=== PATIENT | female | born 1935 | race Caucasian/White ===

== ENCOUNTER 2016-12-10 18:17 | Inpatient (IN) | payer MEDICARE, OTHER ==
--- NOTE | ~2016-12-10 | IDS ---
Interim Discharge Summary [facility] [address] [place]. [address] NAME: PINA WADSWORTH : 35 STATUS : ADM IN [facility]#: [id number] AGE: 81 ADM/REG DATE : 12/11/16 MR#: [id number] REPORT SERV DATE: 12/16/16 DICTATED BY: RICHY HRERMANN DATE: 12/15/16 REPORT STATUS : Draft TRANSCRIBED BY: MODFreida DATE: 12/15/16 ADMISSION DATE: 12/11/2016 DISCHARGE DATE: DATE OF INTERIM DISCHARGE: 12/09/2009. PROCEDURES DONE: 1. 12/10/2016, CT of the brain, no acute intracranial hemorrhage or acute intracranial pathology. Otherwise unremarkable. 2. 12/11/2015, chest x-ray, no acute process. 3. 12/11/2016, KUB:. a. No evidence of acute abnormality within the abdomen. 4. 12/11/2016, ultrasound, renal collecting system, mildly dilated on the left side. Right kidney, nonobstructive. Aorta and vena cava normal. Urinary bladder not imaged. CONSULT: GI with nurse practitioner, Jairon Miller. REASON FOR ADMISSION: Abnormal labs. HISTORY OF HOSPITAL STAY: An 81-year-old white female with a past medical history of Crohn's disease, status post stent in 09/2016; hypertension; hypothyroid; hyperlipidemia; and chronic kidney disease, stage 3, presenting with abnormal labs. The patient was admitted due to the patient having acute kidney injury. Also, there was a note of having bright red per rectum. GI was consulted regarding the patient's acute bright red per rectum. Initial tests, however, show the patient being positive for C. difficile. At this time, GI felt no scope needed due to the patient having no obvious source of GI bleed. Nonetheless, the patient's acute kidney injury gradually resolved over time when the patient started having IV fluids. In addition, the patient also was being treated for the C. diff with vancomycin p.o. liquid. DIAGNOSES ON DISCHARGE: 1. Abnormal labs secondary to acute kidney injury, currently resolved. Patient getting IV fluids. 2. Bright red blood per rectum secondary to questionable etiology. I appreciate GI input. GI signing out. Hemoglobin and hematocrit currently are stable. Therefore, no scope at this time due to no obvious sign of GI bleed as well as the patient being positive for Clostridium difficile. 3. Clostridium difficile. Continue vancomycin liquid. 4. Acute kidney injury, improving. FBJann/MODL Richy Herrmann MD Interim Discharge Summary [address] [facility] [place] [address] NAME: PINA WADSWORTH : 35 STATUS : ADM IN PAT#: [id number] AGE: 81 ADM/REG DATE : 12/11/16 MR#: [id number] REPORT SERV DATE: 12/16/16 DICTATED BY: RICHY HERRMANN DATE: 12/15/16 REPORT STATUS : Draft TRANSCRIBED BY: ELZBIETA DATE: 12/15/16 / [id number] CC: MD Bhupendra Vega M.D.
--- NOTE | ~2016-12-10 | HP ---
History And Physical [address] [facility]. [address] NAME: PINA WADSWORTH : 35 STATUS : ADM IN PAT#: [id number] AGE: 81 ADM/REG DATE : 12/11/16 MR#: [id number] REPORT SERV DATE: 12/11/16 DICTATED BY: KRIS CARRION DATE: 12/11/16 REPORT STATUS : Draft TRANSCRIBED BY: MODFreida DATE: 12/11/16 DATE OF ADMISSION: 12/11/2016 POINT OF ENTRY: [facility] Emergency Department. PRIMARY TRACK VEHICLE REPAIRER: Terrence Cuello M.D. PRIMARY PIECE WORKER: Gio Novak M.D. CHIEF COMPLAINT: Abnormal labs. HISTORY OF PRESENT ILLNESS: Ms Wadsworth is an 81-year-old female with history of hypertension, hyperlipidemia, coronary artery disease with recent drug-eluting stent, PCI in September 2016 as well as hypothyroidism, who presents to the emergency room today with reports of abnormal labs. The patient states that for the past week to dmeh-gqp-p-half she has had upper respiratory tract congestion with cough, sputum production, and generally feeling poorly. She denies any fevers. She was seen by Dr. Rios in clinic yesterday and started on some Biaxin for presumed acute bronchitis. The patient also states that she has had issues with bright red blood per rectum on and off now for the past two years and is seeing Dr. Novak. Last colonoscopy was in September 2015 which showed polyps, diverticulosis, as well as internal hemorrhoids. She states for the past week to iolh-qoh-b-half she has had recurrence of multiple episodes of bright red blood per rectum, both in the toilet bowl water as well as on her toilet paper. The patient for the past week to ddof-ixr-j-half also just generally felt poorly with very poor oral intake as well as occasional loose watery stools. She denies any fevers, night sweats, chills, chest pain, palpitations, nausea, or vomiting. Initial evaluation in the emergency department notable for a BUN of 84, creatinine of 3.2 with a potassium level of 5.9. Her hemoglobin also was 8.5, hematocrit is 26.1. EKG did show some mild peaked T-waves, she was subsequently the Hospitalist Service for further evaluation and management. Comprehensive systems otherwise negative unless listed in history of present illness. PAST MEDICAL HISTORY: 1. Coronary artery disease with recent drug-eluting stent, PCI to the mid LAD and RCA in September 2014. 2. Hypertension. 3. Hyperlipidemia. 4. Myasthenia gravis, on Mestinon. 5. History of cerebrovascular accident in 2006. History And Physical [address] [address] NAME: PINA WADSWORTH : 35 STATUS : ADM IN PAT#: [id number] AGE: 81 ADM/REG DATE : 12/11/16 MR#: [id number] REPORT SERV DATE: 12/11/16 DICTATED BY: KRIS CARRION DATE: 12/11/16 REPORT STATUS : Draft TRANSCRIBED BY: ELZBIETA DATE: 12/11/16 6. Chronic kidney disease, stage 3, baseline creatinine approximately 1 to 1.2. 7. Hypothyroidism. 8. Glaucoma. 9. Cataracts. 10.Chronic anemia. 11.Chronic diastolic congestive heart failure. PAST SURGICAL HISTORY: 1. Cholecystectomy. 2. Abdominal hysterectomy. 3. Cataract surgery. ALLERGIES: NO KNOWN DRUG ALLERGIES. HOME MEDICATIONS: 1. Albuterol two puffs inhalation q.6 hours p.r.n. 2. Tekturna 300 mg daily. 3. Norvasc 10 mg daily. 4. Aspirin 81 mg q.h.s. 5. Symbicort two puffs inhalation b.i.d. 6. Chlorthalidone 25 mg daily. 7. Biaxin 250 mg b.i.d. 8. Plavix 75 mg daily. 9. Dexilant 60 mg daily. 10.Fenofibrate 145 mg daily. 11.Folic acid one tablet daily. 12.Hydralazine 50 mg b.i.d. 13.[place] 7.5/325 mg one tablet b.i.d. 14.Levothyroxine 100 mcg daily. 15.Imodium 2 mg q.4 hours p.r.n. 16.Singulair 10 mg q.h.s. 17.Nitroglycerin 0.4 mg sublingual p.r.n. 18.Mirapex 0.25 mg q.h.s. 19.Pravachol 40 mg q.h.s. 20.Mestinon 90 mg t.i.d. 21.Sertraline 50 mg daily. 22.Trazodone 50 mg q.48 hours q.h.s. 23.Travatan eye drops. SOCIAL HISTORY: Denies any tobacco, alcohol, or illicits. FAMILY MEDICAL HISTORY: Father and sibling with history of coronary artery disease. LABS AND IMAGIN. White count is 8.5, hemoglobin 8.5, hematocrit is 26.1, and platelet count is 301. INR pending. 2. Sodium is 135, potassium 5.9, chloride 104, carbon dioxide 20, BUN 84, creatinine 3.28, History And Physical [address] [place]. [address] NAME: PINA WADSWORTH : 35 STATUS : ADM IN [facility]#: [id number] AGE: 81 ADM/REG DATE : 12/11/16 MR#: [id number] REPORT SERV DATE: 12/11/16 DICTATED BY: KRIS CARRION DATE: 12/11/16 REPORT STATUS : Draft TRANSCRIBED BY: ELZBIETA DATE: 12/11/16 glucose is 127, calcium is 8.7, protein is 7.3, albumin is 3.3, bilirubin is 0.6, ALT is 21, AST is 36, and alkaline phosphatase is 43. 3. EKG per my review shows normal sinus rhythm with some mild lateral T-wave peaking, but no interval prolongation. 4. Chest x-ray per my review shows no acute cardiopulmonary abnormality. 5. CT scan of the brain, no intracranial abnormality. PHYSICAL EXAMINATION: VITAL SIGNS: Temperature is 98.2 degrees Fahrenheit, pulse is 78, respirations 16, saturating 95% on room air, and blood pressure is 117/51. GENERAL: The patient is awake and alert, in no acute distress. Resting comfortably. She is an elderly female, who appears somewhat ill, but nontoxic. Family is at bedside. HEENT: Atraumatic and normocephalic. Slightly dry mucous membranes. Pupils are equal, round, reactive to light and accommodation. Extraocular eye movements intact. No scleral icterus. NECK: No jugular venous distention. No carotid bruits. CARDIAC: Regular rate and rhythm. No murmurs, rubs, or gallops. Normal S1, S2. LUNGS: Clear to auscultation bilaterally except for some mild inspiratory wheezes in the bilateral bases. ABDOMEN: Soft, mildly tender to palpation in bilateral lower quadrants. No rebound, guarding, or rigidity. EXTREMITIES: Warm and perfused. No cyanosis or clubbing. SKIN: The patient does have a stage I sacral decubitus wound just to the right of midline as well as a stage II sacral decubitus wound just to the right of the gluteal cleft and a stage II sacral decubitus wound just to the left of the gluteal cleft. PSYCH: Affect is very blunted and withdrawn. NEURO: Alert and oriented x3. Cranial nerves 2 through 12 grossly intact. Speech is normal. Gait not assessed. ASSESSMENT AND PLAN: Ms Wadsworth is an 81-year-old female, who presents with a one to two- week history of upper respiratory tract congestion, feeling poorly, weakness, anorexia as well as multiple episodes of bright red blood per rectum and found to have evidence of acute kidney injury with hyperkalemia as well as acute on chronic anemia. PROBLEM LIST: 1. Acute kidney injury. 2. Hyperkalemia. 3. Bright red blood per rectum. 4. Acute on chronic anemia. 5. Acute bronchitis. 6. Sacral decubitus wounds. PLAN: 1. Acute kidney injury. We will hold the patient's nephrotoxic medications including chlorthalidone and Tekturna. There is some concern the patient may also be taking Lasix and potassium chloride in addition to her chlorthalidone. We will provide aggressive IV fluid hydration. Checking urine lytes as well as urinalysis and a renal History And Physical [address] [address] NAME: PINA WADSWORTH : 35 STATUS : ADM IN [facility]#: [id number] AGE: 81 ADM/REG DATE : 12/11/16 MR#: [id number] REPORT SERV DATE: 12/11/16 DICTATED BY: KRIS CARRION DATE: 12/11/16 REPORT STATUS : Draft TRANSCRIBED BY: MODL DATE: 12/11/16 ultrasound. 2. Hyperkalemia. The patient has some mild T-wave peaking on EKG. We will admit her to the cardiac telemetry. She has already received 1 g of calcium gluconate here in the ER as well as temporizing measures including Kayexalate, amp of sodium bicarb, as well as insulin and glucose. We will continue to provide IV fluid hydration, holding nephrotoxic medications as well as potassium supplementation. 3. Bright red blood per rectum. Per discussion with family this appears to be ongoing chronic issue as managed by Dr. Novak. Given worsening anemia as well as the fact that she is on aspirin and Plavix due to recent drug-eluting stent placement, we will consult Dr. Novak for evaluation. 4. Acute on chronic anemia. We will trend out q.6 hours hemoglobin and hematocrit, transfuse for hemoglobin less than 7, but we will continue her aspirin and Plavix given recent drug-eluting stent placement. 5. Acute bronchitis. We will place her on some oral doxycycline as well as steroids and DuoNeb for acute bronchitis. 6. Sacral decubitus wounds. No evidence of any active infection at this time. These appeared to be stage I and stage II in severity, we will consult Wound Care for assistance. 7. Coronary artery disease with recent PCI. We will continue the patient's aspirin and Plavix. She denies any chest pain. Her EKG is nonischemic. We will check a single set of troponin value. 8. DVT prophylaxis. TEDs and SCDs given bleeding. CODE STATUS: The patient wished to be full code. JCB/MODL Kris Carrion MD / [id number] CC: MD Bhupendra Vega M.D. William Warren, M.D. Sumeet Bhushan, M.D.
--- NOTE | ~2016-12-10 | DS ---
Discharge Summary [facility] [address] [place]. [address] NAME: PINA WADSWORTH : 35 STATUS : DIS IN PAT#: [id number] AGE: 81 ADM/REG DATE : 12/11/16 MR#: [id number] REPORT SERV DATE: 12/26/16 DICTATED BY: KELLY MOSLEY DATE: 12/25/16 REPORT STATUS : Draft TRANSCRIBED BY: MODL DATE: 12/25/16 ADMISSION DATE: 12/11/2016 DISCHARGE DATE: 12/25/2016 CONSULTANTS: Dr. Terrence Singer of Gastroenterology. DISCHARGE DIAGNOSES: 1. Recurrent C. 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 2. Acute kidney injury, transient, resolved. 3. Hypertension. 4. History of coronary artery disease with previous drug-eluting stent placed to the RCA. 5. Acute blood loss anemia. 6. History of collagenous colitis. 7. Lower gastrointestinal bleed. 8. History of previous colon polyps that were benign. 9. Previous left silva stroke July 2007. 10.Myasthenia gravis. 11.Hypothyroidism. 12.Recent acute bronchitis. 13.Asymptomatic bacteria. 14.History of generalized anxiety disorder. 15.Transient metabolic encephalopathy with hallucinations when she was sleep deprived, resolved. 16.Recent fall at home with external trauma right ear. 17.Chronic unexplained shortness of breath despite previous pulmonary and cardiac evaluation. 18.Over replacement of Synthroid, currently. HISTORY: This patient had some URI symptoms and had gone to see her PCP, was given some Biaxin. She has also had intermittently some bright red blood per rectum. Previous colonoscopy [address] Gio Novak, revealed hemorrhoids and transverse colon polyp and some diverticulosis. Reportedly for a week and a half, she just felt weak and tired with some loose watery stools. In the emergency room, she was found to have evidence of acute kidney injury with BUN 84, creatinine 3.2, potassium 5.9, her hemoglobin was 8.5. She was referred to our inpatient team for evaluation. As far as her acute kidney injury, there was concern that it might be due to volume depletion from diarrhea plus she was on chlorthalidone and Tekturna. These medications were held, and she was given fluid replacement and her renal function returned to normal so that by discharge creatinine 0.99, potassium 4.0. Her blood pressures have been doing reasonably well off these medicines as well. The patient was seen by GI, and they ordered stool studies on the patient because of her diarrhea, and her C. diff came back positive. She was started on oral vancomycin 125 mg by mouth four times per day. She was noted by the admitting team to have already in place a left gluteal wound and Wound Care saw her on Discharge Summary [address] [place]. [address] NAME: PINA WADSWORTH : 35 STATUS : DIS IN PAT#: [id number] AGE: 81 ADM/REG DATE : 12/11/16 MR#: [id number] REPORT SERV DATE: 12/26/16 DICTATED BY: KELLY MOSLEY DATE: 12/25/16 REPORT STATUS : Draft TRANSCRIBED BY: ELZBIETA DATE: 12/25/16 12/11/2016 and ordered Mepilex Border to the left gluteal wound, Sensi-Care to gee-rectal erythema related to the diarrhea. The patient reportedly did not sleep much at all for the first three days, and according to the daughter after that was having some hallucinations, then she slept and was better. The daughter Haylee by phone indicated that the patient has had some noted confusion since she had coronary stents placed in September 2016. She felt like the patient's memory problems were from that point on. She does indicate though that for a longer period of time, the patient does not initiate much conversation. She will answer questions, just is very passive and withdrawn. The patient still reportedly dresses herself, bathes herself, feed herself, does not cook much, still is able to reportedly pay the bills. The daughter had to take over the medication administration though because the patient was having some trouble with accuracy in this area. The patient also has a complaint of chronic shortness of breath, and according to the daughter, the patient had been going to Dr. Li, of Pulmonary for years, and the patient common-law and daughter indicate that as far as they know, no particular cause for her shortness of breath was ever found by the waste/materials exchange specialist. We did request records from their office but had not received them. While here, she had an echocardiogram 12/10/2016 showing normal left ventricular size and function with ejection fraction 65%. No significant valvular problems. The patient did have an anemia. On presentation, her hemoglobin was 8.5, and its lowest was 6.9. She was given two units of packed red cells, and by discharge it was stable at 10 but no sign of ongoing bleeding. Iron was low at 17, ferritin was 70, TIBC was 367, B12 back on October 28 of this year was 919. Her TSH was low at 0.23, and her free T4 was elevated at 1.7 so her levothyroxine dose was reduced from the usual 100 mcg she was taking daily down to 75 mcg daily, and she needs a recheck TSH in about four weeks. The patient's diarrhea has resolved. She is afebrile. Her white blood count is normal. She has no abdominal pain. She is eating better. She was assessed by Physical Therapy, and they now feel like she would benefit from inpatient rehab so those arrangements have been made. The common-law is in agreement and reportedly the daughter is as well. DISCHARGE MEDICATIONS: Norvasc 10 mg daily, aspirin 81 mg daily, Plavix 75 mg daily, Tricor 145 mg daily, [place] 7.5 b.i.d. p.r.n. pain which is a chronic medication for her, Synthroid 75 mcg daily, Singulair 10 mg daily, Pravachol 40 mg at bedtime, Mestinon 90 mg t.i.d. for her myasthenia gravis, Zoloft 50 mg daily, Desyrel 50 mg every other bedtime, hydralazine 50 mg b.i.d., Symbicort 160/4.5 two puffs twice a day, Tylenol 650 q.6 hours p.r.n. minor pain, melatonin 3 mg at bedtime p.r.n., nitroglycerin sublingual 0.4 mg p.r.n. chest pain, albuterol nebulized or hand-held p.r.n. shortness of breath, Mirapex 0.25 mg at bedtime. We stopped her Dexilant because it has a high risk of leading to relapse of C. diff, and she denied any recent gastroesophageal reflux symptoms. Folic acid with vitamin B12 tablets daily, Travatan-Z 0.004% one drop each eye at bedtime. We stopped her chlorthalidone and Tekturna for the reasons described above. Vancomycin 125 mg p.o. t.i.d. for seven days then 125 mg b.i.d. for seven days, 125 mg daily for seven days then 125 mg every other day for a week, then stop. Discharge Summary [facility] [place]. [address] NAME: PINA WADSWORTH : 35 STATUS : DIS IN PAT#: [id number] AGE: 81 ADM/REG DATE : 12/11/16 MR#: [id number] REPORT SERV DATE: 12/26/16 DICTATED BY: KELLY MOSLEY DATE: 12/25/16 REPORT STATUS : Draft TRANSCRIBED BY: MODFreida DATE: 12/25/16 After discharge, the patient should follow up with her PCP Dr. Eleuterio Rios, with Pulmonary, Dr. Li, neurology Dr. Chao, inspector canned food reconditioning Dr. Cuello, and GI Dr. Novak. I spent 47 minutes today with the patient and with discharge planning. RSG/ELZBIETA Kelly Mosley M.D. / [id number] CC: Nicole Elizabeth M.D. Cheko Li M.D. [facility] Jamal Chao M.D., PhD. Terrence Cuello M.D. Gio Novak M.D.
--- NOTE | ~2016-12-10 | IDS ---
Interim Discharge Summary [facility] [address] [place]. [address] NAME: PINA WADSWORTH : 35 STATUS : ADM IN PAT#: [id number] AGE: 81 ADM/REG DATE : 12/11/16 MR#: [id number] REPORT SERV DATE: 12/21/16 DICTATED BY: EKLLY BRICENO DATE: 12/21/16 REPORT STATUS : Draft TRANSCRIBED BY: ELZBIETA DATE: 12/21/16 ADMISSION DATE: 12/11/2016 DISCHARGE DATE: OUTPATIENT SENIOR SCRUM MASTER: Terrence Cuello M.D. OUTPATIENT GI: Gio Novak M.D. INTERIM DIAGNOSES: 1. Clostridium colitis. 2. Hematochezia secondary to above. 3. Acute blood loss anemia, status post two units packed RBC. 4. Coronary artery disease with stent. 5. History of cerebrovascular accident. 6. Status post acute kidney injury on chronic kidney disease 3. 7. Myasthenia gravis. 8. Hypothyroidism. 9. Status post hypokalemia. 10.Status post acute bronchitis. HOSPITAL COURSE: Please refer to the H and P done by Dr. Albarado dated on 12/11/2016 and the interim discharge summary done by Dr. Espinoza on 12/16/2016. Since I took care of this patient, the patient continues to have diarrhea intermittently with blood. She already got two units of packed RBC and so far she has not been needing for more. Her H and H remained stable and GI already signed off. We are continuing the p.o. vanco and according to her, it is getting better and she wants to go home. She actually said to me that she did not have any more diarrhea and ready to go home. However, the nurses still notes more than four diarrhea in the past 24 hours and some of them is a little bit bloody. The patient denies any abdominal pain, and her vitals remained stable. So, we are going to continue the p.o. vancomycin for now, monitor her electrolytes and H and H, and once her diarrhea resolves that is when she can safely go home. Partner of mine will be following up the patient starting Thursday. SHELDON/ELZBIETA Kelly Briceno M.D. / [id number] CC: Nicole Olson M.D.
--- NOTE | ~2016-12-10 | CN ---
Consultation Report [facility] [address] [place]. [address] NAME: PINA WADSWORTH : 35 STATUS : ADM IN PAT#: [id number] AGE: 81 ADM/REG DATE : 12/11/16 MR#: [id number] REPORT SERV DATE: 12/11/16 DICTATED BY: KAMILAH SHERMAN DATE: 12/11/16 REPORT STATUS : Draft TRANSCRIBED BY: MODL DATE: 12/11/16 GI CONSULTATION DATE OF CONSULTATION: 12/11/2016 REASON FOR CONSULTATION: Evaluation and management of bright red blood per rectum. HISTORY OF PRESENT ILLNESS: Ms. Wadsworth is an 81-year-old female patient, known to Dr. Gio Novak in the outpatient setting, who presented to [facility] on 12/11 with a chief complaint of abnormal labs. She has a history of hypertension and coronary artery disease with recent PCI with drug-eluting stent placed in 09/2016, on a regimen of Plavix and aspirin. She states that for the past week, she has had upper respiratory tract cough, congestion, sputum production and has generally felt bad. She has denied fevers, denied chilling. She saw her primary care physician on 12/10 and was started on Biaxin for possibly acute bronchitis. She states to me that she has had a very poor appetite over the last several weeks. She has had intermittent issues with bright red blood per rectum. This has been an ongoing issue for the past two years. Her last colonoscopy with Dr. Novak was in 09/2015. That exam showed non-thrombosed internal hemorrhoids, grade 2; sigmoid colon diverticulosis; transverse colon polyp, removed and found to be tubular adenomatous type without high-grade dysplasia. On a 2010 colonoscopy, she had collagenous colitis. She states that she has been having some watery stools. She has a history of C diff. Her stools have been sent for testing. The nurse this morning, who was in the room with her, stated that the bowel movement they sent down for testing did not have any obvious blood in it. The patient states that she will sit on the toilet and at times, blood will just drip out of her. She denied any abdominal pain, but had mild tenderness to the left lower quadrant on palpation. Laboratory data on admission showed an elevated potassium at 5.9, elevated BUN at 84, creatinine was 3.28. Her hemoglobin was 8.5, and hematocrit was 26.1. In 09/2016, she had a hemoglobin of 11.6. The patient did suffer a fall yesterday with a cut on her right ear. She had a brain CT when she was admitted that was negative. No abdominal imaging has been obtained. I have discussed with the patient at present we will discuss with Dr. Singer if further evaluation with colonoscopy would be a benefit at this time. PAST MEDICAL HISTORY: Positive for C diff; collagenous colitis; colon polyps; diverticulosis; internal hemorrhoids; coronary artery disease with recent PCI, drug-eluting stent placed to the mid lad and RCA in 09/2016; hypertension; hyperlipidemia; myasthenia gravis, taking Mestinon; CVA; chronic kidney disease; hypothyroidism; glaucoma; chronic anemia; chronic diastolic congestive heart failure; cataracts. PAST SURGICAL HISTORY: Cholecystectomy, abdominal hysterectomy, cataract surgery. SOCIAL HISTORY: Denies alcohol, tobacco, or illicits. Lives independently. FAMILY HISTORY: Negative from a GI standpoint. Consultation Report [address] [place]. [address] NAME: PINA WADSWORTH : 35 STATUS : ADM IN [facility]#: [id number] AGE: 81 ADM/REG DATE : 12/11/16 MR#: [id number] REPORT SERV DATE: 12/11/16 DICTATED BY: KAMILAH SHERMAN DATE: 12/11/16 REPORT STATUS : Draft TRANSCRIBED BY: ELZBIETA DATE: 12/11/16 ALLERGIES: NOTHING. HOME MEDICATIONS: ProAir, Tekturna, Norvasc, aspirin, Symbicort, Hygroton, Biaxin, Plavix, Dexilant, TriCor, Folbee, Apresoline, Austin, Synthroid, Imodium, Singulair, nitroglycerin, Mirapex, Pravachol, Mestinon, Zoloft, Desyrel, and Travatan. REVIEW OF SYSTEMS: A 10-point review of systems has been obtained with pertinent positives being addressed in the history of present illness. PERTINENT LABORATORY DATA: Sodium 142, potassium 4.8, BUN is 80, creatinine 2.94. White count is 6.3, hemoglobin 8.1, hematocrit 24.5, platelet count 288. INR of 1.4. PHYSICAL EXAMINATION: VITAL SIGNS: Temperature 98.0, pulse 84, respirations 20, and blood pressure 148/65. NEURO: Reveals an alert, ill-appearing female, resting in bed with no obvious focal deficits. GENERAL: She is cooperative. She is in no acute distress. She is awake. She is alert. She is oriented x3. HEAD, EARS, EYES, NOSE, AND THROAT: Anicteric. Pupils are equal, round, reactive to light and accommodation. Normocephalic and atraumatic. NECK: No JVD. No palpable nodes. LUNGS: Diminished throughout with normal respiratory effort exhibited. CARDIOVASCULAR SYSTEM: Regular rate and rhythm. ABDOMEN: Soft and nondistended. She has some very mild left lower quadrant tenderness to palpation. No rebound or guarding elicited on exam. Active bowel sounds. EXTREMITIES: Slight lower extremity edema. SKIN: Noted sacral decubitus. ASSESSMENT: 1. Bright red blood per rectum. Differential diagnosis should include diverticular bleeding, hemorrhoidal irritation, AVMs, colitis. 2. Acute blood loss anemia. Hemoglobin in 09/2016 of 11.6, presently 8.1. 3. Recent PCI, drug-eluting stent in 09/2016, on Plavix and aspirin. 4. Nausea with anorexia. 5. Acute kidney injury. 6. Hyperkalemia. 7. Acute bronchitis. 8. Status post fall, negative brain CT. 9. History of Clostridium difficile. 10.History of collagenous colitis. PLAN: 1. Monitor H and H. Consultation Report [address] [place]. [address] NAME: PINA WADSWORTH : 35 STATUS : ADM IN [facility]#: [id number] AGE: 81 ADM/REG DATE : 12/11/16 MR#: [id number] REPORT SERV DATE: 12/11/16 DICTATED BY: KAMILAH SHERMAN DATE: 12/11/16 REPORT STATUS : Draft TRANSCRIBED BY: MODL DATE: 12/11/16 2. We will start Anusol. 3. We will discuss with Dr. Singer plus or minus colonoscopy at some point in time versus observation for followup stool studies. We will follow. LUDMILA/ELZBIETA Kamilah JANELLE [place] / [id number] CC: MD Bhupendra Vega M.D.
[~2016-12-10 18:17] MED LIST: ANASPAZ0.125 MG PO; APRES25 PO; APRES50 PO; APRISO0.375 GM PO; ASAB PO; BENTYL20 PO; BRILINTA90 MG PO; DEXILANT PO; DIFLUNISAL500 MG OR; DITROXL5 PO; DORZOLAMIDE2 % OP; DULERA 200 MCG/13 GM INH; EXFORGE1 TA3 PO; FLORASTOR250 MG PO; FOLBEE PO; HYDROMET1 ML PO; HYGROTON 25 MG25 MG PO; IMDUR30 PO; IMDUR60 PO; ISOPTIN SR180 MG PO; KAPIDEX60 MG PO; KLOR-CON M2020 MEQ PO; L20 PO; L40 PO; LEVSINTAB PO; LEXAPRO10 PO; LORT7 PO; LORTAB10 PO; MAGOX4 PO; METAMUCIL CAN7 OZ; MIRAPEX250 PO; MUCINEX600 MG PO; NABUMETONE750 MG PO; NITROSTAT0.4 MG SL; NORCO1 TA2 PO; NORV10 PO; NORV5 PO; P10 PO; P125 PO; PLAVIX PO; PRAVACHOL40 MG PO; PREV15 PO; PRIN5 PO; PROAIRRESP INH; PROTONIX20 MG PO; PYRID60 PO; SINGULAIR1 PO; SPIRIVA INH; SPIRO25 PO; SYMBICORT 160/41 INH INH; SYMBICORT 80/4.1 INH INH; SYN1 PO; TAMIFLU PO; TEKTURNA HCT1 TA2 PO; TEKTURNA HCT1 TA3 PO; TEKTURNA300 MG PO; TRAVATAN Z 0.004% OPH; TRAVATAN Z0.004 % OPH; TRAZ50 PO; TRICOR145 PO; VANCOCIN HCL250 MG PO; VITAMIN C PO; VITAMIN D1000 UNI1 PO; VOLT75 PO; ZOCOR40 PO; [UNRECOGNIZED DRUG - OTHER] PO
[2016-12-10] MEDS ORDERED: ZOL50 PO (22:09)
[2016-12-10] MEDS ORDERED: IMOD PO (22:11)
[2016-12-10] MEDS ORDERED: BIAXIN250 PO (22:12)
[2016-12-10 23:01] LABS: BASOPHILS 0.1 %; BASOPHILS ABSOLUTE 0.01 10/3/uL (0.0-0.16); EOSINOPHILS 0.6 %; EOSINOPHILS ABSOLUTE 0.05 10/3/uL (0.0-0.53); IMMATURE GRANULOCYTES 0.4 %; IMMATURE GRANULOCYTES ABSOLUTE 0.03 10/3/uL (0.0-0.11); LYMPHOCYTES 15.7 %; LYMPHOCYTES ABSOLUTE 1.34 10/3/uL (0.67-4.30); MEAN CORPUS HGB CONC 32.6 g/dL (32.0-36.0); MEAN CORPUSCULAR HEMOGLOB 29.4 pg (26.0-34.0); MONOCYTES ABSOLUTE 1.02 10/3/uL (0.21-1.20); NEUTROPHILS 71.2 %; NEUTROPHILS ABSOLUTE 6.06 10/3/uL (2.02-8.40); RBC DISTRIBUTION WIDTH 15.1 % (12.0-16.0)
[2016-12-10 23:02] LABS: ER CBC TAT 0 Hrs 09 Mins; HEMATOCRIT 26.1 % (36.0-48.0); HEMOGLOBIN 8.5 g/dL (12.0-16.0); MANUAL DIFF NO %; MEAN CORPUSCULAR VOLUME 90.3 fL (80-100); PLATELET COUNT 301 10/3/uL (150-400); RED CELL COUNT 2.89 10/6/uL (4.0-5.6); WHITE BLOOD CELLS 8.5 10/3/uL (4.5-10.5)
[2016-12-10 23:19] LABS: A/G RATIO 0.8 (0.7-1.9); ALKALINE PHOSPHATASE 43 U/L (45-117); CALCIUM, SERUM 8.7 MG/DL (8.5-10.4); CHLORIDE, SERUM 104 MMOL/L (96-112); CO2 (CARBON DIOXIDE) 20 MMOL/L (24-34); SGOT(AST) 36 U/L (5-40); SGPT(ALT) 21 U/L (5-65); SODIUM, SERUM 135 MMOL/L (135-148); TOTAL BILIRUBIN 0.6 MG/DL (0-1.2); TOTAL PROTEIN 7.3 G/DL (6.0-8.5)
[2016-12-10 23:20] LABS: ALBUMIN 3.3 G/DL (3.5-5.0); BUN (BLOOD UREA NITROGEN) 84 MG/DL (6-23); CREATININE 3.28 MG/DL (0.55-1.02); GFR AFRICAN AMERICAN 15 ML/MIN (>=60); GFR NON AFRICAN AMERICAN 13 ML/MIN (>=60); GLUCOSE, SERUM 127 MG/DL (60-99); POTASSIUM, SERUM 5.9 MMOL/L (3.5-5.3)
[2016-12-10 23:33] LABS: ER DIFF TAT 0 Hrs 40 Mins; LYMPHOCYTES 10 %; LYMPHOCYTES ABSOLUTE (CALC) 0.85 10/3/uL (0.67-4.30); MONOCYTES 7 %; NEUTROPHILS ABSOLUTE (CALC) 7.06 10/3/uL (2.02-8.40); PLATELET ESTIMATE ADQ (ADEQUATE); SEGMENTED NEUTROPHIL (0) 83 %; TOTAL NUCLEATED CELLS 100
[2016-12-10 23:34] LABS: RBC MORPHOLOGY NORM (NORMAL)
[2016-12-11 06:11] LABS: INTERNATIONAL NORMAL RATI 1.4 UNITS (-); PARTIAL THROMBO TIME 35.6 SEC (22.5-37.2)
[2016-12-11 06:15] LABS: BASOPHILS 0.3 %; BASOPHILS ABSOLUTE 0.02 10/3/uL (0.0-0.16); EOSINOPHILS 0.3 %; EOSINOPHILS ABSOLUTE 0.02 10/3/uL (0.0-0.53); HEMATOCRIT 24.5 % (36.0-48.0); HEMOGLOBIN 8.1 g/dL (12.0-16.0); IMMATURE GRANULOCYTES 0.2 %; IMMATURE GRANULOCYTES ABSOLUTE 0.01 10/3/uL (0.0-0.11); LYMPHOCYTES 9.7 %; LYMPHOCYTES ABSOLUTE 0.61 10/3/uL (0.67-4.30); MEAN CORPUS HGB CONC 33.1 g/dL (32.0-36.0); MEAN CORPUSCULAR HEMOGLOB 29.8 pg (26.0-34.0); MEAN CORPUSCULAR VOLUME 90.1 fL (80-100); MEAN PLATELET VOLUME 9.4 fL (9.2-13.0); MONOCYTES 6.7 %; MONOCYTES ABSOLUTE 0.42 10/3/uL (0.21-1.20); NEUTROPHILS 82.8 %; NEUTROPHILS ABSOLUTE 5.19 10/3/uL (2.02-8.40); PLATELET COUNT 288 10/3/uL (150-400); RBC DISTRIBUTION WIDTH 15.2 % (12.0-16.0); RED CELL COUNT 2.72 10/6/uL (4.0-5.6); WHITE BLOOD CELLS 6.3 10/3/uL (4.5-10.5)
[2016-12-11 06:19] LABS: MANUAL DIFF NO %
[2016-12-11 06:31] LABS: CALCIUM, SERUM 8.8 MG/DL (8.5-10.4); CHLORIDE, SERUM 108 MMOL/L (96-112); CO2 (CARBON DIOXIDE) 19 MMOL/L (24-34); CREATININE 2.94 MG/DL (0.55-1.02); FERRITIN 70 NG/ML (8-252); GFR AFRICAN AMERICAN 17 ML/MIN (>=60); GFR NON AFRICAN AMERICAN 14 ML/MIN (>=60); GLUCOSE, SERUM 107 MG/DL (60-99); IRON BINDING CAPACITY 367 MCG/DL (225-410); IRON, SERUM 17 MCG/DL (35-150); POTASSIUM, SERUM 4.8 MMOL/L (3.5-5.3); TROPONIN I <0.02 NG/ML (<0.05)
[2016-12-11 06:32] LABS: BUN (BLOOD UREA NITROGEN) 80 MG/DL (6-23); SODIUM, SERUM 142 MMOL/L (135-148)
[2016-12-11 11:15] LABS: HEMATOCRIT 25.2 % (36.0-48.0); HEMOGLOBIN 8.2 g/dL (12.0-16.0)
[2016-12-11 18:24] LABS: HEMOGLOBIN 7.3 g/dL (12.0-16.0)
[2016-12-11 18:26] LABS: HEMATOCRIT 22.3 % (36.0-48.0)
[2016-12-12 00:24] LABS: HEMATOCRIT 21.6 % (36.0-48.0); HEMOGLOBIN 6.9 g/dL (12.0-16.0)
[2016-12-12 10:04] LABS: BASOPHILS 0.1 %; BASOPHILS ABSOLUTE 0.01 10/3/uL (0.0-0.16); EOSINOPHILS 0.2 %; EOSINOPHILS ABSOLUTE 0.02 10/3/uL (0.0-0.53); IMMATURE GRANULOCYTES 0.4 %; IMMATURE GRANULOCYTES ABSOLUTE 0.03 10/3/uL (0.0-0.11); LYMPHOCYTES 14.9 %; LYMPHOCYTES ABSOLUTE 1.23 10/3/uL (0.67-4.30); MEAN CORPUS HGB CONC 33.5 g/dL (32.0-36.0); MEAN CORPUSCULAR HEMOGLOB 29.8 pg (26.0-34.0); MEAN CORPUSCULAR VOLUME 88.8 fL (80-100); MONOCYTES 8.1 %; MONOCYTES ABSOLUTE 0.67 10/3/uL (0.21-1.20); NEUTROPHILS 76.3 %; NEUTROPHILS ABSOLUTE 6.27 10/3/uL (2.02-8.40); PLATELET COUNT 274 10/3/uL (150-400); RBC DISTRIBUTION WIDTH 15.5 % (12.0-16.0); WHITE BLOOD CELLS 8.2 10/3/uL (4.5-10.5)
[2016-12-12 10:11] LABS: HEMATOCRIT 31.4 % (36.0-48.0); HEMOGLOBIN 10.3 g/dL (12.0-16.0)
[2016-12-12 10:11] LABS: INTERNATIONAL NORMAL RATI 1.5 UNITS (-); PROTIME (NOT ORD) 17.8 SEC (12.0-14.5)
[2016-12-12 10:12] LABS: HEMOGLOBIN 10.4 g/dL (12.0-16.0); MANUAL DIFF NO %; RED CELL COUNT 3.49 10/6/uL (4.0-5.6)
[2016-12-12 10:14] LABS: BUN (BLOOD UREA NITROGEN) 57 MG/DL (6-23); CALCIUM, SERUM 8.1 MG/DL (8.5-10.4); CHLORIDE, SERUM 106 MMOL/L (96-112); CO2 (CARBON DIOXIDE) 20 MMOL/L (24-34); CREATININE 2.07 MG/DL (0.55-1.02); GFR AFRICAN AMERICAN 25 ML/MIN (>=60); GFR NON AFRICAN AMERICAN 22 ML/MIN (>=60); GLUCOSE, SERUM 176 MG/DL (60-99); SODIUM, SERUM 137 MMOL/L (135-148)
[2016-12-13 08:17] LABS: BASOPHILS 0.1 %; BASOPHILS ABSOLUTE 0.01 10/3/uL (0.0-0.16); EOSINOPHILS 0 %; HEMATOCRIT 31.3 % (36.0-48.0); HEMOGLOBIN 10.4 g/dL (12.0-16.0); IMMATURE GRANULOCYTES 1.2 %; IMMATURE GRANULOCYTES ABSOLUTE 0.11 10/3/uL (0.0-0.11); LYMPHOCYTES 11.3 %; MEAN CORPUS HGB CONC 33.2 g/dL (32.0-36.0); MEAN CORPUSCULAR HEMOGLOB 29.5 pg (26.0-34.0); MEAN CORPUSCULAR VOLUME 88.9 fL (80-100); MONOCYTES 13.3 %; MONOCYTES ABSOLUTE 1.18 10/3/uL (0.21-1.20); NEUTROPHILS 74.1 %; NEUTROPHILS ABSOLUTE 6.56 10/3/uL (2.02-8.40); PLATELET COUNT 252 10/3/uL (150-400); RBC DISTRIBUTION WIDTH 15.6 % (12.0-16.0); RED CELL COUNT 3.52 10/6/uL (4.0-5.6); WHITE BLOOD CELLS 8.9 10/3/uL (4.5-10.5)
[2016-12-13 08:20] LABS: MANUAL DIFF NO %
[2016-12-13 08:29] LABS: CALCIUM, SERUM 8.2 MG/DL (8.5-10.4); CHLORIDE, SERUM 111 MMOL/L (96-112); CO2 (CARBON DIOXIDE) 20 MMOL/L (24-34); POTASSIUM, SERUM 4.5 MMOL/L (3.5-5.3); SODIUM, SERUM 139 MMOL/L (135-148)
[2016-12-13 08:31] LABS: BUN (BLOOD UREA NITROGEN) 43 MG/DL (6-23); CREATININE 1.47 MG/DL (0.55-1.02); GFR AFRICAN AMERICAN 38 ML/MIN (>=60); GFR NON AFRICAN AMERICAN 33 ML/MIN (>=60); GLUCOSE, SERUM 96 MG/DL (60-99); PHOSPHORUS, SERUM 2.1 MG/DL (2.5-4.5)
[2016-12-14 07:14] LABS: BASOPHILS 0 %; EOSINOPHILS 0 %; HEMATOCRIT 32.1 % (36.0-48.0); HEMOGLOBIN 10.8 g/dL (12.0-16.0); IMMATURE GRANULOCYTES 1.1 %; LYMPHOCYTES 12.7 %; LYMPHOCYTES ABSOLUTE 1.17 10/3/uL (0.67-4.30); MEAN CORPUS HGB CONC 33.6 g/dL (32.0-36.0); MEAN CORPUSCULAR HEMOGLOB 29.6 pg (26.0-34.0); MEAN CORPUSCULAR VOLUME 87.9 fL (80-100); MEAN PLATELET VOLUME 9.1 fL (9.2-13.0); MONOCYTES 11.6 %; MONOCYTES ABSOLUTE 1.07 10/3/uL (0.21-1.20); NEUTROPHILS 74.6 %; NEUTROPHILS ABSOLUTE 6.87 10/3/uL (2.02-8.40); PLATELET COUNT 271 10/3/uL (150-400); RBC DISTRIBUTION WIDTH 15.2 % (12.0-16.0); RED CELL COUNT 3.65 10/6/uL (4.0-5.6); WHITE BLOOD CELLS 9.2 10/3/uL (4.5-10.5)
[2016-12-14 07:18] LABS: MANUAL DIFF NO %
[2016-12-14 07:31] LABS: A/G RATIO 0.8 (0.7-1.9); ALBUMIN 2.6 G/DL (3.5-5.0); BUN (BLOOD UREA NITROGEN) 40 MG/DL (6-23); CALCIUM, SERUM 8.4 MG/DL (8.5-10.4); CHLORIDE, SERUM 107 MMOL/L (96-112); CO2 (CARBON DIOXIDE) 21 MMOL/L (24-34); CREATININE 1.46 MG/DL (0.55-1.02); GFR AFRICAN AMERICAN 39 ML/MIN (>=60); GFR NON AFRICAN AMERICAN 33 ML/MIN (>=60); GLOBULIN 3.3 G/DL (2.5-4.1); GLUCOSE, SERUM 93 MG/DL (60-99); PHOSPHORUS, SERUM 2.4 MG/DL (2.5-4.5); POTASSIUM, SERUM 4.2 MMOL/L (3.5-5.3); SGOT(AST) 42 U/L (5-40); SGPT(ALT) 22 U/L (5-65); SODIUM, SERUM 137 MMOL/L (135-148); TOTAL BILIRUBIN 0.4 MG/DL (0-1.2); TOTAL PROTEIN 5.9 G/DL (6.0-8.5)
[2016-12-14 07:32] LABS: ALKALINE PHOSPHATASE 54 U/L (45-117)
[2016-12-15 05:39] LABS: BASOPHILS 0 %; EOSINOPHILS 0.1 %; EOSINOPHILS ABSOLUTE 0.01 10/3/uL (0.0-0.53); HEMATOCRIT 34.3 % (36.0-48.0); HEMOGLOBIN 11.4 g/dL (12.0-16.0); IMMATURE GRANULOCYTES 1.1 %; IMMATURE GRANULOCYTES ABSOLUTE 0.09 10/3/uL (0.0-0.11); MEAN CORPUS HGB CONC 33.2 g/dL (32.0-36.0); MEAN CORPUSCULAR HEMOGLOB 29.2 pg (26.0-34.0); MEAN CORPUSCULAR VOLUME 87.7 fL (80-100); MEAN PLATELET VOLUME 9.1 fL (9.2-13.0); MONOCYTES 11.9 %; MONOCYTES ABSOLUTE 1.01 10/3/uL (0.21-1.20); NEUTROPHILS 73.9 %; NEUTROPHILS ABSOLUTE 6.28 10/3/uL (2.02-8.40); PLATELET COUNT 280 10/3/uL (150-400); RBC DISTRIBUTION WIDTH 15.5 % (12.0-16.0); RED CELL COUNT 3.91 10/6/uL (4.0-5.6); WHITE BLOOD CELLS 8.5 10/3/uL (4.5-10.5)
[2016-12-15 05:42] LABS: MANUAL DIFF NO %
[2016-12-15 05:52] LABS: A/G RATIO 0.7 (0.7-1.9); ALBUMIN 2.5 G/DL (3.5-5.0); ALKALINE PHOSPHATASE 56 U/L (45-117); CALCIUM, SERUM 8.4 MG/DL (8.5-10.4); CHLORIDE, SERUM 109 MMOL/L (96-112); CO2 (CARBON DIOXIDE) 22 MMOL/L (24-34); CREATININE 1.22 MG/DL (0.55-1.02); GFR AFRICAN AMERICAN 48 ML/MIN (>=60); GFR NON AFRICAN AMERICAN 42 ML/MIN (>=60); GLOBULIN 3.5 G/DL (2.5-4.1); GLUCOSE, SERUM 92 MG/DL (60-99); PHOSPHORUS, SERUM 2.2 MG/DL (2.5-4.5); POTASSIUM, SERUM 4.1 MMOL/L (3.5-5.3); SGOT(AST) 38 U/L (5-40); SGPT(ALT) 27 U/L (5-65); SODIUM, SERUM 141 MMOL/L (135-148)
[2016-12-15 05:58] LABS: BUN (BLOOD UREA NITROGEN) 34 MG/DL (6-23)
[2016-12-16 06:25] LABS: BASOPHILS 0.1 %; BASOPHILS ABSOLUTE 0.01 10/3/uL (0.0-0.16); EOSINOPHILS 0.4 %; EOSINOPHILS ABSOLUTE 0.03 10/3/uL (0.0-0.53); HEMATOCRIT 34.5 % (36.0-48.0); HEMOGLOBIN 11.6 g/dL (12.0-16.0); IMMATURE GRANULOCYTES 0.8 %; IMMATURE GRANULOCYTES ABSOLUTE 0.07 10/3/uL (0.0-0.11); LYMPHOCYTES 14.5 %; LYMPHOCYTES ABSOLUTE 1.23 10/3/uL (0.67-4.30); MEAN CORPUS HGB CONC 33.6 g/dL (32.0-36.0); MEAN CORPUSCULAR HEMOGLOB 29.4 pg (26.0-34.0); MEAN CORPUSCULAR VOLUME 87.6 fL (80-100); MEAN PLATELET VOLUME 8.8 fL (9.2-13.0); MONOCYTES 11.1 %; MONOCYTES ABSOLUTE 0.94 10/3/uL (0.21-1.20); NEUTROPHILS 73.1 %; NEUTROPHILS ABSOLUTE 6.22 10/3/uL (2.02-8.40); PLATELET COUNT 240 10/3/uL (150-400); RBC DISTRIBUTION WIDTH 15.1 % (12.0-16.0); RED CELL COUNT 3.94 10/6/uL (4.0-5.6); WHITE BLOOD CELLS 8.5 10/3/uL (4.5-10.5)
[2016-12-16 06:26] LABS: MANUAL DIFF NO %
[2016-12-16 06:39] LABS: A/G RATIO 0.7 (0.7-1.9); ALBUMIN 2.5 G/DL (3.5-5.0); ALKALINE PHOSPHATASE 57 U/L (45-117); BUN (BLOOD UREA NITROGEN) 33 MG/DL (6-23); CALCIUM, SERUM 8.3 MG/DL (8.5-10.4); CHLORIDE, SERUM 110 MMOL/L (96-112); CO2 (CARBON DIOXIDE) 23 MMOL/L (24-34); CREATININE 1.22 MG/DL (0.55-1.02); GFR AFRICAN AMERICAN 48 ML/MIN (>=60); GFR NON AFRICAN AMERICAN 42 ML/MIN (>=60); GLOBULIN 3.4 G/DL (2.5-4.1); GLUCOSE, SERUM 83 MG/DL (60-99); PHOSPHORUS, SERUM 2.5 MG/DL (2.5-4.5); POTASSIUM, SERUM 3.8 MMOL/L (3.5-5.3); SGOT(AST) 34 U/L (5-40); SGPT(ALT) 24 U/L (5-65); SODIUM, SERUM 142 MMOL/L (135-148); TOTAL BILIRUBIN 0.8 MG/DL (0-1.2); TOTAL PROTEIN 5.9 G/DL (6.0-8.5)
[2016-12-17 06:36] LABS: BUN (BLOOD UREA NITROGEN) 31 MG/DL (6-23); CALCIUM, SERUM 8.4 MG/DL (8.5-10.4); CHLORIDE, SERUM 107 MMOL/L (96-112); CO2 (CARBON DIOXIDE) 22 MMOL/L (24-34); CREATININE 1.11 MG/DL (0.55-1.02); GFR AFRICAN AMERICAN 54 ML/MIN (>=60); GFR NON AFRICAN AMERICAN 47 ML/MIN (>=60); GLUCOSE, SERUM 84 MG/DL (60-99); POTASSIUM, SERUM 3.9 MMOL/L (3.5-5.3); SODIUM, SERUM 138 MMOL/L (135-148)
[2016-12-19 05:00] LABS: BASOPHILS 0.3 %; BASOPHILS ABSOLUTE 0.02 10/3/uL (0.0-0.16); EOSINOPHILS 1.9 %; EOSINOPHILS ABSOLUTE 0.13 10/3/uL (0.0-0.53); HEMATOCRIT 32.7 % (36.0-48.0); HEMOGLOBIN 10.8 g/dL (12.0-16.0); IMMATURE GRANULOCYTES 0.1 %; IMMATURE GRANULOCYTES ABSOLUTE 0.01 10/3/uL (0.0-0.11); LYMPHOCYTES 16.4 %; LYMPHOCYTES ABSOLUTE 1.11 10/3/uL (0.67-4.30); MEAN CORPUSCULAR HEMOGLOB 29.4 pg (26.0-34.0); MEAN CORPUSCULAR VOLUME 89.1 fL (80-100); MEAN PLATELET VOLUME 8.9 fL (9.2-13.0); MONOCYTES ABSOLUTE 1.08 10/3/uL (0.21-1.20); NEUTROPHILS 65.3 %; PLATELET COUNT 237 10/3/uL (150-400); RBC DISTRIBUTION WIDTH 15.3 % (12.0-16.0); RED CELL COUNT 3.67 10/6/uL (4.0-5.6); WHITE BLOOD CELLS 6.8 10/3/uL (4.5-10.5)
[2016-12-19 05:03] LABS: MANUAL DIFF NO %
[2016-12-19 06:13] LABS: CALCIUM, SERUM 7.7 MG/DL (8.5-10.4); CHLORIDE, SERUM 111 MMOL/L (96-112); CO2 (CARBON DIOXIDE) 19 MMOL/L (24-34); CREATININE 1.22 MG/DL (0.55-1.02); GFR AFRICAN AMERICAN 48 ML/MIN (>=60); GFR NON AFRICAN AMERICAN 42 ML/MIN (>=60); GLUCOSE, SERUM 80 MG/DL (60-99); SODIUM, SERUM 141 MMOL/L (135-148)
[2016-12-19 06:15] LABS: BUN (BLOOD UREA NITROGEN) 35 MG/DL (6-23)
[2016-12-21 08:40] LABS: CALCIUM, SERUM 7.7 MG/DL (8.5-10.4); CHLORIDE, SERUM 111 MMOL/L (96-112); CO2 (CARBON DIOXIDE) 20 MMOL/L (24-34); CREATININE 1.03 MG/DL (0.55-1.02); GFR AFRICAN AMERICAN 59 ML/MIN (>=60); GFR NON AFRICAN AMERICAN 51 ML/MIN (>=60); GLUCOSE, SERUM 81 MG/DL (60-99); POTASSIUM, SERUM 4.4 MMOL/L (3.5-5.3); SODIUM, SERUM 141 MMOL/L (135-148)
[2016-12-21 08:41] LABS: BUN (BLOOD UREA NITROGEN) 22 MG/DL (6-23)
[2016-12-21 09:17] LABS: BASOPHILS 0.4 %; BASOPHILS ABSOLUTE 0.03 10/3/uL (0.0-0.16); EOSINOPHILS ABSOLUTE 0.14 10/3/uL (0.0-0.53); HEMATOCRIT 34.5 % (36.0-48.0); HEMOGLOBIN 11.4 g/dL (12.0-16.0); IMMATURE GRANULOCYTES 0.3 %; IMMATURE GRANULOCYTES ABSOLUTE 0.02 10/3/uL (0.0-0.11); LYMPHOCYTES ABSOLUTE 1.24 10/3/uL (0.67-4.30); MEAN CORPUSCULAR HEMOGLOB 29.5 pg (26.0-34.0); MEAN CORPUSCULAR VOLUME 89.4 fL (80-100); MONOCYTES 10.7 %; MONOCYTES ABSOLUTE 0.74 10/3/uL (0.21-1.20); NEUTROPHILS 68.6 %; NEUTROPHILS ABSOLUTE 4.72 10/3/uL (2.02-8.40); PLATELET COUNT 240 10/3/uL (150-400); RBC DISTRIBUTION WIDTH 15.6 % (12.0-16.0); RED CELL COUNT 3.86 10/6/uL (4.0-5.6); WHITE BLOOD CELLS 6.9 10/3/uL (4.5-10.5)
[2016-12-21 09:21] LABS: MANUAL DIFF NO %
[2016-12-22 22:59] LABS: ASCORBIC ACID (UR NOT ORDER) 40 (NEG); BILIRUBIN, URINE NEGATIVE (NEG); KETONE, URINE NEGATIVE (NEG); LEUKOCYTE ESTERASE(NOT OR LARGE (NEG); WBC (NOT ORDERED) (RFLEX) 30 (0-5)
[2016-12-23 04:30] LABS: ASCORBIC ACID (UR NOT ORDER) 40 (NEG); BILIRUBIN, URINE NEGATIVE (NEG); KETONE, URINE NEGATIVE (NEG); LEUKOCYTE ESTERASE(NOT OR LARGE (NEG); WBC (NOT ORDERED) (RFLEX) 42 (0-5)
[2016-12-23 05:28] LABS: BASOPHILS 0.2 %; BASOPHILS ABSOLUTE 0.01 10/3/uL (0.0-0.16); EOSINOPHILS 1.8 %; HEMATOCRIT 31.7 % (36.0-48.0); HEMOGLOBIN 10.5 g/dL (12.0-16.0); IMMATURE GRANULOCYTES 0.4 %; IMMATURE GRANULOCYTES ABSOLUTE 0.02 10/3/uL (0.0-0.11); LYMPHOCYTES 19.2 %; LYMPHOCYTES ABSOLUTE 1.09 10/3/uL (0.67-4.30); MANUAL DIFF NO %; MEAN CORPUS HGB CONC 33.1 g/dL (32.0-36.0); MEAN CORPUSCULAR HEMOGLOB 29.6 pg (26.0-34.0); MEAN CORPUSCULAR VOLUME 89.3 fL (80-100); MEAN PLATELET VOLUME 9.2 fL (9.2-13.0); MONOCYTES 15.7 %; MONOCYTES ABSOLUTE 0.89 10/3/uL (0.21-1.20); NEUTROPHILS 62.7 %; NEUTROPHILS ABSOLUTE 3.57 10/3/uL (2.02-8.40); PLATELET COUNT 249 10/3/uL (150-400); RBC DISTRIBUTION WIDTH 15.8 % (12.0-16.0); RED CELL COUNT 3.55 10/6/uL (4.0-5.6); WHITE BLOOD CELLS 5.7 10/3/uL (4.5-10.5)
[2016-12-23 05:43] LABS: BUN (BLOOD UREA NITROGEN) 18 MG/DL (6-23); CALCIUM, SERUM 7.8 MG/DL (8.5-10.4); CHLORIDE, SERUM 109 MMOL/L (96-112); CO2 (CARBON DIOXIDE) 22 MMOL/L (24-34); CREATININE 1.06 MG/DL (0.55-1.02); GFR AFRICAN AMERICAN 57 ML/MIN (>=60); GFR NON AFRICAN AMERICAN 49 ML/MIN (>=60); GLUCOSE, SERUM 87 MG/DL (60-99); SODIUM, SERUM 140 MMOL/L (135-148)
[2016-12-24 08:13] LABS: BASOPHILS 0.2 %; BASOPHILS ABSOLUTE 0.01 10/3/uL (0.0-0.16); EOSINOPHILS ABSOLUTE 0.13 10/3/uL (0.0-0.53); HEMATOCRIT 33.3 % (36.0-48.0); IMMATURE GRANULOCYTES 0.2 %; IMMATURE GRANULOCYTES ABSOLUTE 0.01 10/3/uL (0.0-0.11); LYMPHOCYTES 18.7 %; MEAN CORPUSCULAR HEMOGLOB 29.2 pg (26.0-34.0); MEAN CORPUSCULAR VOLUME 88.3 fL (80-100); MONOCYTES 12.9 %; MONOCYTES ABSOLUTE 0.83 10/3/uL (0.21-1.20); NEUTROPHILS ABSOLUTE 4.23 10/3/uL (2.02-8.40); PLATELET COUNT 272 10/3/uL (150-400); RBC DISTRIBUTION WIDTH 15.9 % (12.0-16.0); RED CELL COUNT 3.77 10/6/uL (4.0-5.6); WHITE BLOOD CELLS 6.4 10/3/uL (4.5-10.5)
[2016-12-24 08:14] LABS: MANUAL DIFF NO %
[2016-12-24 08:31] LABS: A/G RATIO 0.7 (0.7-1.9); ALBUMIN 2.6 G/DL (3.5-5.0); CALCIUM, SERUM 8.6 MG/DL (8.5-10.4); CHLORIDE, SERUM 112 MMOL/L (96-112); CO2 (CARBON DIOXIDE) 21 MMOL/L (24-34); CREATININE 0.92 MG/DL (0.55-1.02); GFR AFRICAN AMERICAN 68 ML/MIN (>=60); GFR NON AFRICAN AMERICAN 58 ML/MIN (>=60); GLOBULIN 3.7 G/DL (2.5-4.1); GLUCOSE, SERUM 89 MG/DL (60-99); SGOT(AST) 37 U/L (5-40); SGPT(ALT) 22 U/L (5-65); SODIUM, SERUM 142 MMOL/L (135-148); TOTAL BILIRUBIN 0.5 MG/DL (0-1.2); TOTAL PROTEIN 6.3 G/DL (6.0-8.5)
[2016-12-24 08:32] LABS: ALKALINE PHOSPHATASE 73 U/L (45-117); BUN (BLOOD UREA NITROGEN) 11 MG/DL (6-23)
[2016-12-25 03:50] LABS: BASOPHILS 0.2 %; BASOPHILS ABSOLUTE 0.01 10/3/uL (0.0-0.16); HEMATOCRIT 30.3 % (36.0-48.0); IMMATURE GRANULOCYTES 0.2 %; IMMATURE GRANULOCYTES ABSOLUTE 0.01 10/3/uL (0.0-0.11); LYMPHOCYTES 20.2 %; LYMPHOCYTES ABSOLUTE 1.01 10/3/uL (0.67-4.30); MEAN CORPUSCULAR HEMOGLOB 29.4 pg (26.0-34.0); MEAN CORPUSCULAR VOLUME 89.1 fL (80-100); MEAN PLATELET VOLUME 8.8 fL (9.2-13.0); MONOCYTES 11.2 %; MONOCYTES ABSOLUTE 0.56 10/3/uL (0.21-1.20); NEUTROPHILS 66.2 %; PLATELET COUNT 234 10/3/uL (150-400); RBC DISTRIBUTION WIDTH 15.9 % (12.0-16.0)
[2016-12-25 03:51] LABS: MANUAL DIFF NO %
[2016-12-25 04:12] LABS: PHOSPHORUS, SERUM 1.6 MG/DL (2.5-4.5)
[2016-12-25 06:38] LABS: CALCIUM, SERUM 7.9 MG/DL (8.5-10.4); CO2 (CARBON DIOXIDE) 19 MMOL/L (24-34); CREATININE 0.99 MG/DL (0.55-1.02); GFR AFRICAN AMERICAN 62 ML/MIN (>=60); GFR NON AFRICAN AMERICAN 53 ML/MIN (>=60); GLUCOSE, SERUM 95 MG/DL (60-99)
[2016-12-25 06:39] LABS: BUN (BLOOD UREA NITROGEN) 15 MG/DL (6-23)
[2016-12-25 06:56] LABS: CHLORIDE, SERUM 110 MMOL/L (96-112); SODIUM, SERUM 138 MMOL/L (135-148)
== END 2016-12-25 14:06 | DRG 371 ==
LOC: ER 18:17 → 2SO 12-11 01:18
PROVIDERS: Emergency Medicine; Hospitalist; Internal Medicine; Nurse Practitioner Family
PROC: 30233N1 Transfusion of Nonautologous Red Blood Cells into Peripheral Vein, Percutaneous Approach (ICD-10-PCS; principal; 2016-12-12)
DX: A04.7 Enterocolitis due to Clostridium difficile (principal); G93.41 Metabolic encephalopathy; N17.9 Acute kidney failure, unspecified; G70.00 Myasthenia gravis without (acute) exacerbation; I50.32 Chronic diastolic (congestive) heart failure; D62 Acute posthemorrhagic anemia; E87.5 Hyperkalemia; I13.0 Hypertensive heart and chronic kidney disease with heart failure and stage 1 through stage 4 chronic kidney disease, or unspecified chronic kidney disease; J45.901 Unspecified asthma with (acute) exacerbation; D64.9 Anemia, unspecified; I25.10 Atherosclerotic heart disease of native coronary artery without angina pectoris; F41.9 Anxiety disorder, unspecified; N18.3 Chronic kidney disease, stage 3 (moderate); J20.9 Acute bronchitis, unspecified; W18.30XA Fall on same level, unspecified, initial encounter; S01.311A Laceration without foreign body of right ear, initial encounter; D50.9 Iron deficiency anemia, unspecified; K57.90 Diverticulosis of intestine, part unspecified, without perforation or abscess without bleeding; E86.9 Volume depletion, unspecified; E78.5 Hyperlipidemia, unspecified; H40.9 Unspecified glaucoma; H26.9 Unspecified cataract; B96.89 Other specified bacterial agents as the cause of diseases classified elsewhere; Z95.5 Presence of coronary angioplasty implant and graft; Z86.73 Personal history of transient ischemic attack (TIA), and cerebral infarction without residual deficits
CPT/HCPCS: 36415; 70450; 71010; 74000; 74176; 76775; 80048; 80053; 80069; 81001; 82728; 83540; 83550; 83735; 83880; 84100; 84439; 84443; 84484; 85014; 85018; 85025; 85610; 85730; 86850; 86900; 86901; 86920; 87040; 87077; 87086; 87186; 87493; 87493-59; 93005; 94640; 96374; 96375; 97110-GP; 97116-GP; 97161-GP; 97164-GP; 99285; A9270-GY; G8978-CK-GP; G8979-CH-GP; J0610; J1940; J2405; J2916; P9016